=== PATIENT | female | born 1940 | race Caucasian/White ===

== ENCOUNTER 2017-01-13 07:27 | Day surgery (SDC) | payer OTHER, MEDICARE ==
[2016-12-28 16:49] VITALS: BMI 27.0
[~2017-01-13] VITALS: Ht 157.5 cm; Wt 66.0 kg
--- NOTE | 2017-01-13 06:04 | History and Physical ---
History & Physical Date of Service Jan 13, 2017. History & Physical CC: End stage renal disease HPI: Mrs. Francois states that she has had a decrease in her kidney function recently and was advised to have her fistula created before she actually requires use of it. She states that she has been chronically ill for some time with other medical problems as well. She denies other complaints including headaches, fevers, chills, dizziness, chest pain, shortness of breath, abdominal pain, nausea, vomiting, diarrhea, constipation, dysuria, hematuria, rest pain, claudication, nonhealing wounds or ulcers, or other complaints. ALLERGIES: Include no known allergies. HOME MEDICATIONS: Reconciled on the chart and include the following: Amlodipine, aspirin, atorvastatin, clonidine, ergocalciferol, labetalol, Lasix, nifedipine, and Xanax. PAST MEDICAL HISTORY: Positive for hypertension, type 2 diabetes mellitus, end- stage renal disease, hypercholesterolemia, and short-term memory loss. SURGICAL HISTORY: Positive for a left kidney biopsy and as well as a tonsillectomy. FAMILY HISTORY: Positive for bone cancer in her daughter. There is also a history of hypertension and diabetes as well. SOCIAL HISTORY: Negative for tobacco, alcohol or drug use. REVIEW OF SYSTEMS: Negative for fatigue, fevers, sweats, weight loss, exercise intolerance, abnormal moles or rashes, vision changes or photophobia, ear pain, sinus problems or sore throat, cough, shortness of breath, hemoptysis or wheezing, chest pain, palpitations, edema or syncope, abdominal pain, nausea, vomiting, diarrhea or constipation, dysuria, hematuria, muscle weakness, headaches, dizziness, numbness or seizures. PHYSICAL EXAMINATION: Her vital signs today are as follows: Blood pressure 124 /56 in the right arm, 126/62 in the left arm, heart rate is 76 and oxygen 99% on room air. The patient is 157 cm tall and weighs 60 kilograms. Constitutional: In general, patient is a thin, chronically ill-appearing, frail elderly female in no acute distress. She is nonambulatory and is in a wheelchair and requires assistance to get up and transfer. Her head is normocephalic and atraumatic. Her eyes are EOMI. Her ENMT exam demonstrates no hearing loss, rhinorrhea or pharyngeal erythema. Her neck is supple, nontender with a midline trachea without masses or crepitus. Her lungs exam demonstrates no dyspnea. They are decreased somewhat throughout but are clear bilaterally. Her cardiovascular exam demonstrates a nondisplaced apical impulse with a regular rate and rhythm with a 2/6 systolic ejection murmur. The patient demonstrates normal pulses unless otherwise noted. Specifically, they are normal in her carotid, brachial, radial and femoral pulses. Her bilateral extremity pulses are +1. She has brisk capillary refill and no signs of ischemia. She demonstrates no bruits in her carotid, abdominal or femoral area. Her abdomen is soft, nontender with normoactive bowel sounds in all 4 quadrants without guarding or rebound. There is no flank or CVA tenderness. Her musculoskeletal exam demonstrates normal tone. Moderate decreased strength throughout for age. Bilateral upper extremities demonstrates no cyanosis, edema , clubbing, varicosities or ulcers. Bilateral lower extremities demonstrate no cyanosis, edema, clubbing, varicosities or ulcers. Neurologic: The patient has grossly intact cranial nerves and grossly intact sensation. ASSESSMENT AND PLAN: End-stage renal disease, not yet on hemodialysis. PLAN: Patient is admitted for a creation of a right upper extremity antecubital av fistula. I have discussed the risks options and benefits of the procedure with the patient. The patient understands the risks options and benefits and agrees to the procedure.
[~2017-01-13 07:27] MED LIST: AMLO-110 PO; ASPI81TA28 PO; ATOR-22 PO; CEFAZOLIN 1000MG/55 ML D5W IV SCH; CLON-460 PO; ERGO500037 PO; LABE1TAB28 PO; SITA100T3 PO; SODIUM CHLORIDE 0.9% 1000ML 1,000 ML IV SCH
[2017-01-13 08:05] VITALS: BP 157/58; PULSE 69; TEMP 36.7; O2SAT 95; Ht 157.5 cm; Wt 66.0 kg
[2017-01-13 08:06] LABS: HEMATOCRIT 23.7 % (37-47); MEAN CELL VOLUME 90.1 fL (80-100); MEAN CORPUSCULAR HEMOGLOBIN 30.4 pg (25-34); MEAN PLATELET VOLUME 8.9 fL (7.4-10.4); PLATELET COUNT 211 K/uL (130-400); RED BLOOD COUNT 2.63 M/uL (4.2-5.4); WHITE BLOOD COUNT 8.39 K/uL (4.8-10.8)
[2017-01-13 08:08] LABS: MEAN CORPUSCULAR HGB CONC 33.8 g/dl (32-36)
[2017-01-13] MEDS ORDERED: EpHEDrine SULFATE INJ 50 MG/ML AMP IV PRN (08:15)
[2017-01-13] MEDS ORDERED: ONDANSETRON INJ 2 MG/ML 2 ML VIAL IV PRN (08:15)
[2017-01-13] MEDS ORDERED: ATROPINE SULFATE 0.1 MG/ML 5ML SYR IV PRN (08:15)
[2017-01-13] MEDS ORDERED: FENTANYL CITRATE INJ 50 MCG/1 ML 2 ML VIAL IV PRN (08:15)
[2017-01-13 08:48] LABS: BUN/CREATININE RATIO 16.7 (10-20); CALCIUM 9.7 mg/dl (8.5-10.1); CREATININE 3.9 mg/dl (0.60-1.20); POTASSIUM 4.5 mmol/L (3.5-5.1)
[2017-01-13] MEDS ORDERED: MIDAZOLAM HCL 1 MG/ML 2ML VIAL ONE ×2 (08:57→10:30)
[2017-01-13] MEDS ORDERED: PROPOFOL IV EMULSION 10 MG/ML 20 ML VIAL IV ONE ×4 (09:13→11:02)
[2017-01-13] MEDS ORDERED: KETAMINE HCL INJ 50 MG/ML 10 ML VIAL ONE (09:14)
--- NOTE | 2017-01-13 09:45 | History & Physical Bridge Note ---
H&P Re-Evaluation Bridge Note: I have examined the patient, reviewed the History & Physical and in the interval since the performance of the History & Physical I have noted the following changes of clinical significance: No changes noted
[2017-01-13] MEDS ORDERED: GELATIN SPONGE 12-7MM ONE (10:02)
[2017-01-13] MEDS ORDERED: LIDOCAINE HCL 1% 20 ML VIAL ONE (10:02)
[2017-01-13] MEDS ORDERED: HEPARIN SOD (PORCINE) 1000 UNIT/ML 10 ML VIAL ONE (10:02)
[2017-01-13] MEDS ORDERED: BUPIVACAINE/EPINEPHRINE 0.5% MPF 1:200,000 30 ML VIAL ONE (10:02)
[2017-01-13] MEDS ORDERED: THROMBIN FOR SOLN 20000 UNIT KIT ONE (10:02)
--- NOTE | 2017-01-13 11:27 | [facility] Post Operative Brief Note ---
Immediate Operative Summary Operative Date Jan 13, 2017. Pre-Operative Diagnosis End stage renal disease Post-Operative Diagnosis End stage renal disease Procedure(s) Performed Right Upper Extremity Antecubital Cephalic Vein Arteriovenous Fistula Creation Surgeon Dr. Miguel Angel Rinaldi Stitching Machine Setter Surgeon(s) Georgette Correia, Fellow and Inessa lAfred PA-C Estimated Blood Loss 10 Findings Good thrill Specimens None per surgeon Anesthesia MAC Complication(s) None Disposition Recovery Room / PACU
[2017-01-13] MEDS ORDERED: OXYC-57 PO (11:29)
--- NOTE | 2017-01-13 11:32 | Discharge Instructions ---
Discharge Instructions Date of Service Jan 13, 2017. Visit Reason for Visit: End Stage Renal Disease Discharge Discharge Diagnosis / Problem: End stage renal disease Discharge Goals Goal(s): Therapeutic intervention Activity Recommendations Activity Limitations: per Instructions/Follow-up section Anesthesia . Post Anesthesia Instructions: If you have had General Anesthesia or IV Sedation: * Do not drive today. * Resume driving when surgeon permits. * Do not make important decisions or sign legal documents today. * Call surgeon for: 1. Temperature elevations greater than 101 degrees F. 2. Uncontrollable pain. 3. Excessive bleeding. 4. Persistent nausea and vomiting. 5. Medication intolerance (nausea, vomiting or rash). * For nausea and vomiting use only clear liquids such as: tea, soda, bouillon until nausea subsides, then gradually increase diet as tolerated. * If you have any concerns or questions, call your surgeon's office. If physician is unavailable and it is an emergency, call 911 or go to the nearest emergency room. . Instructions / Follow-Up Instructions / Follow-Up Call [phone] to schedule a follow up appointment if one not already scheduled. ACTIVITY RECOMMENDATIONS: See Above SPECIAL CARE INSTRUCTIONS: Call your doctor if: * Temperature above 101 degrees * Pain not relieved by pain medicine ordered * There is increased drainage or redness from any incision * You have any unanswered questions or concerns. Diet Recommendations Recommended Home Diet: resume previous diet Procedures Procedures Performed: Right Upper Extremity Antecubital Cephalic Vein Arteriovenous Fistula Creation Pending Studies Studies pending at discharge: no Medical Emergencies . Who to Call and When: Medical Emergencies: If at any time you feel your situation is an emergency, please call 911 immediately. . Non-Emergent Contact Non-Emergency issues call your: Surgeon . . "Provider Documentation" section prepared by Miguel Angel Rinaldi. . [place] Drug Monitoring Program Search Results: patient reviewed within database, no issues identified
--- NOTE | 2017-01-13 11:58 | OPERATIVE REPORT ---
DATE OF OPERATION: 01/13/2017 PREOPERATIVE DIAGNOSIS: End-stage renal disease on hemodialysis. POSTOPERATIVE DIAGNOSIS: Same. PROCEDURE: Right antecubital brachiocephalic fistula. SURGEON: Dr. Miguel Angel Rinaldi. STAFF SONOGRAPHER: Dr. Georgette Jang and Inessa Alfred PA-C. ANESTHESIA: Local plus conscious sedation. FLUIDS: 300 mL. ESTIMATED BLOOD LOSS: 10. COMPLICATIONS: None apparent. CONDITION: Stable to PACU. INDICATIONS: Rashmi Francois is a 76-year-old female with end-stage renal disease in need of permanent access for hemodialysis. The risks and benefits of the above procedure were explained and she opted to undergo said procedure. PROCEDURE: The patient was brought into the operative suite. She was placed in supine position. A timeout occurred. She was prepped and draped in the usual fashion. Her antecubital crease was identified and a horizontal incision was made below her antecubital crease. Her median antecubital and cephalic veins were identified and attention was then turned to the artery. The brachial artery was identified and dissected out. This was soft with a good pulse and adequate for fistula creation. The attention was returned to the vein. There were multiple branches that had to be ligated and adequately was dissected out. This was brought over to the brachial artery. Proximal and distal control of the brachial artery was obtained with angled DeBakey clamps. An 11 blade was used to make an arteriotomy and this was extended with Whitley scissors. The cephalic vein was then anastomosed in an end-to-side fashion to the brachial artery. Hemostasis was obtained. There was a good thrill in the fistula and good pulse in the brachial artery above and below. There were dopplerable radial and ulnar signals in her distal arm. The surgical site was inspected for hemostasis and then closed with running 3-0 and 4-0 Vicryl sutures and Dermabond. The patient tolerated the procedure well. Dr. Miguel Angel Rinaldi was present and scrubbed for the entirety of this case. I attest to the content of the Intraoperative Record and any orders documented therein. Any exceptions are noted below. I, Dr. Rinaldi was present and scurbbed for the entire procedure. [facility]
--- NOTE | 2017-01-13 11:59 | Anesthesiology Progress Note ---
Anesthesia Post Op Note Date & Time Jan 13, 2017 at 11:59 Vital Signs Pain Intensity: 0 Vital Signs Past 12 Hours Date Time Temp Pulse Resp B/P Pulse Ox O2 Delivery O2 Flow Rate FiO2 01/13/17 11:50 57 16 139/60 93 Room Air 0 Mask 01/13/17 11:43 36.4 58 16 143/58 100 Room Air 0 Mask 01/13/17 08:05 36.7 69 20 157/58 95 Room Air Notes Mental Status: alert / awake / arousable, participated in evaluation Pt Amnestic to Procedure: Yes Nausea / Vomiting: adequately controlled Pain: adequately controlled Airway Patency, RR, SpO2: stable & adequate BP & HR: stable & adequate Hydration State: stable & adequate Anesthetic Complications: no major complications apparent
[2017-01-13 12:10] VITALS: BP 152/56; PULSE 69; TEMP 36.6; O2SAT 95
[2017-01-13 12:35] VITALS: BP 154/73; PULSE 70; TEMP 36.5; O2SAT 100
== END 2017-01-13 12:53 | disposition home or self-care (01) ==
LOC: C.ACU 07:27
PROVIDERS: ATTEND Surgery Vascular Surgery
DX: N18.6 End stage renal disease (principal); Z99.2 Dependence on renal dialysis; E11.22 Type 2 diabetes mellitus with diabetic chronic kidney disease; I12.0 Hypertensive chronic kidney disease with stage 5 chronic kidney disease or end stage renal disease; E78.00 Pure hypercholesterolemia, unspecified; Z79.82 Long term (current) use of aspirin; Z79.899 Other long term (current) drug therapy